=== PATIENT | male | born 1960 | race Caucasian/White ===

== ENCOUNTER 2023-09-13 09:39 | Outpatient (CLI) | payer MEDICAID | END 2023-09-13 23:59 | disposition home or self-care (01) | LOC: RAD 09:39 | PROVIDERS: ATTEND Nurse Practitioner Family | DX: M16.0 Bilateral primary osteoarthritis of hip (principal); M48.07 Spinal stenosis, lumbosacral region; M25.78 Osteophyte, vertebrae; M25.552 Pain in left hip; M79.605 Pain in left leg; M54.50 Low back pain, unspecified | CPT/HCPCS: 72100; 73503 ==

== ENCOUNTER 2023-10-09 09:54 | Inpatient (IN) | payer MEDICAID ==
[~2023-10-09] VITALS: Ht 188 cm; Wt 69.2 kg
[2023-10-09 10:45] LABS: BASOPHILS # (AUTO) 0.2 X10'3 (0-0.2); EOSINOPHILS # (AUTO) 0.1 X10'3 (0-0.9); EOSINOPHILS % (AUTO) 2.2 % (0-6); LYMPHOCYTES # (AUTO) 1.4 X10'3 (1.1-4.8); MEAN PLATELET VOLUME 7.1 FL (7.4-10.4)
[2023-10-09 10:51] LABS: BASOPHILS % (AUTO) 2.6 % (0-1); HEMATOCRIT 22.6 % (42.0-52.0); HEMOGLOBIN 7.3 g/dl (14.0-17.9); LYMPHOCYTES % (AUTO) 20.7 % (21-51); MEAN CORPUSCULAR HEMOGLOBIN 29.6 PG (27.0-31.0); MEAN CORPUSCULAR HGB CONC 32.4 g/dL (33.0-36.5); MEAN CORPUSCULAR VOLUME 91.4 FL (78-98); MONOCYTES # (AUTO) 0.5 X10'3 (0-0.9); MONOCYTES % (AUTO) 6.9 % (2-12); NEUTROPHILS # (AUTO) 4.5 X10'3 (1.8-7.7); NEUTROPHILS % (AUTO) 67.6 % (42-75); PLATELET COUNT 547 X10'3 (140-440); RED BLOOD COUNT 2.47 X10'6 (4.70-6.10); RED CELL DISTRIBUTION WIDTH 14.8 % (11.5-14.5); WHITE BLOOD COUNT 6.6 X10'3 (4.5-11.0)
[2023-10-09 10:54] LABS: ALBUMIN 3.5 G/DL (3.4-5.0); ANION GAP 8 (8-16); BLOOD UREA NITROGEN 21 MG/DL (7-18); BUN/CREATININE RATIO 14.8 (10.0-20.0); CALCIUM 9.4 MG/DL (8.5-10.1); CHLORIDE 107 MMOL/L (99-107); CREATININE 1.42 MG/DL (0.60-1.10); GLUCOSE 116 MG/DL (70-104); POTASSIUM 4.5 MMOL/L (3.5-5.1); SODIUM 141 MMOL/L (135-145); TOTAL CARBON DIOXIDE 25.7 MMOL/L (24-32); eCRCL 52 ML/MIN; eGFR 50 ML/MIN
[2023-10-09 17:21] LABS: APTT 23 SECONDS (22-32)
[2023-10-09] MEDS: ringers solution, lacted 1,000 ML IV ONE (18:58)
[2023-10-09] MEDS ORDERED: magnesium 4gm in 100ml NS 100 ML IV PRN (21:50)
[2023-10-09] MEDS ORDERED: potassium Cl 20 mEq SR tablet PO PRN ×2 (21:50)
[2023-10-09] MEDS ORDERED: mag hydrox/Alum hydrox/simeth 30ml oral suspension PO PRN (21:50)
[2023-10-09] MEDS ORDERED: potassium Cl 40MEQ/1/2NS 520ml 520 ML IV PRN (21:50)
[2023-10-09] MEDS ORDERED: magnesium 2GM in 50ml NS 50 ML IV PRN (21:50)
[2023-10-09] MEDS ORDERED: acetaminophen 325mg tablet PO PRN ×2 (21:50)
[2023-10-09] MEDS ORDERED: ondansetron/PF 4mg/2ml inj IV PRN (21:50)
[2023-10-09] MEDS ORDERED: magnesium Cl slow-release 64mg tablet PO PRN (21:50)
[2023-10-09] MEDS ORDERED: HYDROcodone/acetaminophen 5mg/325mg tablet PO PRN (21:50)
[2023-10-09 22:06] LABS: OCCULT BLOOD STOOL POSITIVE (Neg)
[2023-10-09] MEDS: pantoprazole 40 MG vial IV SCH (23:18)
[2023-10-09] MEDS: normal saline 1000ml 1,000 ML IV SCH (23:18)
[2023-10-10] VITALS (8 sets, daily range): BP systolic 126–175; BP diastolic 57–97; PULSE 91–95; RESP 15–18; TEMP 98.1–98.7; O2SAT 98–99
[2023-10-10] MEDS: amLODIPine 5mg tablet PO SCH (01:01)
[2023-10-10 03:01] LABS: ABSOLUTE RETICS # 72800 /CUMM (23000-93000); RED BLOOD COUNT 2.24 X10'6 (4.70-6.10); RETICULOCYTE % (AUTO) 3.3 % (0.5-1.5)
[2023-10-10 03:14] LABS: MEAN CORPUSCULAR HEMOGLOBIN 29.7 PG (27.0-31.0); MEAN CORPUSCULAR HGB CONC 32.8 g/dL (33.0-36.5); MEAN CORPUSCULAR VOLUME 90.7 FL (78-98); PLATELET COUNT 463 X10'3 (140-440); RED CELL DISTRIBUTION WIDTH 14.8 % (11.5-14.5); WHITE BLOOD COUNT 5.9 X10'3 (4.5-11.0)
[2023-10-10 03:15] LABS: HEMATOCRIT 20.3 % (42.0-52.0); HEMOGLOBIN 6.6 g/dl (14.0-17.9)
[2023-10-10 03:34] LABS: % IRON SATURATION 4 % (11-46); IRON 12 UG/DL (53-167); TOTAL IRON BINDING CAPACITY 312 UG/DL (259-388)
[2023-10-10] MEDS: K and/or MAG REPLACEMENT MC SCH (08:00)
[2023-10-10 09:45] LABS: BASOPHILS % (AUTO) 0.3 % (0-1); EOSINOPHILS # (AUTO) 0.2 X10'3 (0-0.9); EOSINOPHILS % (AUTO) 2.8 % (0-6); HEMATOCRIT 24.1 % (42.0-52.0); LYMPHOCYTES # (AUTO) 1.3 X10'3 (1.1-4.8); LYMPHOCYTES % (AUTO) 24.2 % (21-51); MEAN CORPUSCULAR HEMOGLOBIN 30.1 PG (27.0-31.0); MEAN CORPUSCULAR HGB CONC 33.2 g/dL (33.0-36.5); MEAN CORPUSCULAR VOLUME 90.7 FL (78-98); MEAN PLATELET VOLUME 7.5 FL (7.4-10.4); MONOCYTES # (AUTO) 0.4 X10'3 (0-0.9); MONOCYTES % (AUTO) 7.4 % (2-12); NEUTROPHILS # (AUTO) 3.5 X10'3 (1.8-7.7); NEUTROPHILS % (AUTO) 65.3 % (42-75); PLATELET COUNT 442 X10'3 (140-440); RED BLOOD COUNT 2.65 X10'6 (4.70-6.10); RED CELL DISTRIBUTION WIDTH 14.3 % (11.5-14.5); WHITE BLOOD COUNT 5.3 X10'3 (4.5-11.0)
[2023-10-10 09:59] LABS: ALBUMIN 3.3 G/DL (3.4-5.0); ANION GAP 7 (8-16); BLOOD UREA NITROGEN 18 MG/DL (7-18); BUN/CREATININE RATIO 15.7 (10.0-20.0); CALCIUM 8.9 MG/DL (8.5-10.1); CHLORIDE 108 MMOL/L (99-107); CREATININE 1.15 MG/DL (0.60-1.10); GLUCOSE 92 MG/DL (70-104); MAGNESIUM 1.8 MG/DL (1.5-2.4); PHOSPHORUS 3.7 MG/DL (2.3-4.5); POTASSIUM 4.3 MMOL/L (3.5-5.1); SODIUM 143 MMOL/L (135-145); TOTAL CARBON DIOXIDE 27.6 MMOL/L (24-32); eCRCL 64 ML/MIN; eGFR 64 ML/MIN
[2023-10-10] MEDS ORDERED: GABA600T13 PO (11:47)
[2023-10-10] MEDS ORDERED: BACL10TA2 PO (11:47)
[2023-10-10] MEDS ORDERED: IBUP-1985 PO (11:47)
[2023-10-10] MEDS: ALPRAZolam 0.5mg tablet PO PRN (13:41)
[2023-10-10] MEDS: pantoprazole 40MG/NS 100ML BAG 100 ML IV SCH (16:00)
[2023-10-10] MEDS: PEG 3350/Na sulf,bicarb,Cl/KCl oral sol 4 liter bottle PO ONE (16:35)
[2023-10-11] VITALS (9 sets, daily range): BP systolic 135–177; BP diastolic 63–110; PULSE 81–88; RESP 13–17; TEMP 97.4–98.4; O2SAT 97–100
[2023-10-11 07:45] LABS: BASOPHILS # (AUTO) 0.1 X10'3 (0-0.2); BASOPHILS % (AUTO) 1.5 % (0-1); EOSINOPHILS # (AUTO) 0.3 X10'3 (0-0.9); EOSINOPHILS % (AUTO) 4.8 % (0-6); HEMATOCRIT 23.2 % (42.0-52.0); HEMOGLOBIN 7.7 g/dl (14.0-17.9); LYMPHOCYTES # (AUTO) 1.4 X10'3 (1.1-4.8); LYMPHOCYTES % (AUTO) 22.3 % (21-51); MEAN CORPUSCULAR HEMOGLOBIN 29.6 PG (27.0-31.0); MEAN CORPUSCULAR VOLUME 89.7 FL (78-98); MEAN PLATELET VOLUME 7.5 FL (7.4-10.4); MONOCYTES # (AUTO) 0.5 X10'3 (0-0.9); NEUTROPHILS % (AUTO) 63.4 % (42-75); PLATELET COUNT 428 X10'3 (140-440); RED BLOOD COUNT 2.59 X10'6 (4.70-6.10); RED CELL DISTRIBUTION WIDTH 14.3 % (11.5-14.5); WHITE BLOOD COUNT 6.4 X10'3 (4.5-11.0)
[2023-10-11 08:08] LABS: ALBUMIN 2.9 G/DL (3.4-5.0); ANION GAP 6 (8-16); BLOOD UREA NITROGEN 17 MG/DL (7-18); BUN/CREATININE RATIO 17.2 (10.0-20.0); CALCIUM 8.6 MG/DL (8.5-10.1); CHLORIDE 108 MMOL/L (99-107); CREATININE 0.99 MG/DL (0.60-1.10); GLUCOSE 99 MG/DL (70-104); MAGNESIUM 1.6 MG/DL (1.5-2.4); PHOSPHORUS 2.9 MG/DL (2.3-4.5); POTASSIUM 3.6 MMOL/L (3.5-5.1); SODIUM 140 MMOL/L (135-145); TOTAL CARBON DIOXIDE 26.5 MMOL/L (24-32); eCRCL 75 ML/MIN; eGFR 76 ML/MIN
[2023-10-11] MEDS ORDERED: fentaNYL/PF 50MCG/1 ML 2ML syringe ONE (13:23)
[2023-10-11] MEDS ORDERED: LIDOcaine 2% Viscous 15ml cup ONE (13:23)
[2023-10-11] MEDS ORDERED: diphenhydrAMINE 50 mg/ml inj ONE (13:23)
[2023-10-11] MEDS ORDERED: MIDAZolam 1 MG/ML 5ML VIAL ONE (13:23)
== END 2023-10-11 16:20 | disposition left against medical advice (07) | DRG 253 ==
LOC: ER 09:54 → ED HOLD 21:53 → EDBEDREQ 10-10 05:37 → ORTHO 4S 10-10 15:00
PROVIDERS: ADMIT Surgery Surgical Critical Care; ATTEND Internal Medicine
PROC: 30233N1 Transfusion of Nonautologous Red Blood Cells into Peripheral Vein, Percutaneous Approach (ICD-10-PCS; principal; 2023-10-10)
PROC: 0DB78ZX Excision of Stomach, Pylorus, Via Natural or Artificial Opening Endoscopic, Diagnostic (ICD-10-PCS; 2023-10-11)
PROC: 0DBP8ZX Excision of Rectum, Via Natural or Artificial Opening Endoscopic, Diagnostic (ICD-10-PCS; 2023-10-11)
DX: K92.2 Gastrointestinal hemorrhage, unspecified (principal); K44.9 Diaphragmatic hernia without obstruction or gangrene; D62 Acute posthemorrhagic anemia; K62.1 Rectal polyp; K59.00 Constipation, unspecified; Z79.82 Long term (current) use of aspirin; Z87.891 Personal history of nicotine dependence; Z53.29 Procedure and treatment not carried out because of patient's decision for other reasons
CPT/HCPCS: 36415; 36430; 43239; 45385; 71250; 74176; 80048; 82272; 82728; 83540; 83550; 83735; 84100; 85025; 85027; 85045; 85610; 85730; 86885; 86900; 86901; 86920; 97161; 99152; 99153; 99285; A4620; C1889; C9113; G0378; J1200; J2250; J3010; J7030; J7040; J7120; P9016